=== PATIENT | male | born 1940 | race Caucasian/White ===

== ENCOUNTER → 2018-03-05 | Outpatient (CLI) | payer OTHER, BC ==
[~2018-03-05] MED LIST: ASPIR 8181 MG PO; ASPIRIN325 PO; COLACE100 MG PO; COZAAR 50 MG TA50 M2 PO; FISH OIL 1,001000 M2 PO; FLOMAX0.4 MG PO; LIVALO2 MG PO; LOPRESSOR25 PO; MIRALAX17 GM PO; MOBIC15 MG PO; NIACIN ER1000 MG PO; NORCO 5-325 TA1 EACH PO; PACERONE 200 M200 M1 PO; PROSTATE THERA1 EACH PO; RED YEAST RICE600 MG PO; TYLENOL325 MG PO; [UNRECOGNIZED DRUG - OTHER] PO
[2018-03-05 11:58] LABS: CREATININE 1.1 mg/dL (0.7-1.3)
== END ==
LOC: MRI 02-20 10:44
PROVIDERS: Psychiatry & Neurology Neurology
DX: M47.812 Spondylosis without myelopathy or radiculopathy, cervical region (principal); M31.9 Necrotizing vasculopathy, unspecified; M48.03 Spinal stenosis, cervicothoracic region; M43.13 Spondylolisthesis, cervicothoracic region; M50.23 Other cervical disc displacement, cervicothoracic region; G72.9 Myopathy, unspecified; I99.9 Unspecified disorder of circulatory system; R41.3 Other amnesia; R60.0 Localized edema; Z95.1 Presence of aortocoronary bypass graft

== ENCOUNTER → 2019-06-13 | Outpatient (CLI) | payer OTHER, BC | LOC: SJCVCIMAG 05-27 10:23 | DX: I25.10 Atherosclerotic heart disease of native coronary artery without angina pectoris (principal); E78.2 Mixed hyperlipidemia; I10 Essential (primary) hypertension; M19.90 Unspecified osteoarthritis, unspecified site; Z95.1 Presence of aortocoronary bypass graft; Z79.899 Other long term (current) drug therapy; Z87.891 Personal history of nicotine dependence ==

== ENCOUNTER → 2019-12-23 | Outpatient (CLI) | payer OTHER, BC | LOC: SJCVC 12:37 | PROVIDERS: ATTEND Internal Medicine Cardiovascular Disease | DX: I25.10 Atherosclerotic heart disease of native coronary artery without angina pectoris (principal); I10 Essential (primary) hypertension; E78.2 Mixed hyperlipidemia; E78.00 Pure hypercholesterolemia, unspecified; K21.9 Gastro-esophageal reflux disease without esophagitis; Z90.49 Acquired absence of other specified parts of digestive tract ==

== ENCOUNTER → 2020-05-03 | Outpatient (CLI) | payer OTHER, BC | LOC: SJCVC 11:18 | PROVIDERS: ATTEND Internal Medicine Cardiovascular Disease | DX: I25.10 Atherosclerotic heart disease of native coronary artery without angina pectoris (principal); R94.31 Abnormal electrocardiogram [ECG] [EKG]; I10 Essential (primary) hypertension; K21.9 Gastro-esophageal reflux disease without esophagitis; E78.5 Hyperlipidemia, unspecified; Z95.1 Presence of aortocoronary bypass graft; Z79.82 Long term (current) use of aspirin; Z79.899 Other long term (current) drug therapy; Z87.891 Personal history of nicotine dependence ==

== ENCOUNTER → 2020-07-20 | Outpatient (CLI) | payer OTHER, BC | LOC: SJCVC 10:14 | PROVIDERS: ATTEND Internal Medicine Cardiovascular Disease | DX: R94.31 Abnormal electrocardiogram [ECG] [EKG] (principal); I10 Essential (primary) hypertension; I25.10 Atherosclerotic heart disease of native coronary artery without angina pectoris; K21.9 Gastro-esophageal reflux disease without esophagitis; E78.5 Hyperlipidemia, unspecified; E78.00 Pure hypercholesterolemia, unspecified; Z79.82 Long term (current) use of aspirin; Z79.899 Other long term (current) drug therapy; Z87.891 Personal history of nicotine dependence; Z72.89 Other problems related to lifestyle; Z95.1 Presence of aortocoronary bypass graft ==

== ENCOUNTER → 2021-01-21 | Outpatient (CLI) | payer OTHER, BC | LOC: SJCVC 14:02 | PROVIDERS: ATTEND Internal Medicine Cardiovascular Disease | DX: R94.31 Abnormal electrocardiogram [ECG] [EKG] (principal); I25.10 Atherosclerotic heart disease of native coronary artery without angina pectoris; I10 Essential (primary) hypertension; K21.9 Gastro-esophageal reflux disease without esophagitis; E78.2 Mixed hyperlipidemia; I73.9 Peripheral vascular disease, unspecified; I77.9 Disorder of arteries and arterioles, unspecified; Z79.82 Long term (current) use of aspirin; Z79.899 Other long term (current) drug therapy; Z87.891 Personal history of nicotine dependence; Z72.89 Other problems related to lifestyle ==

== ENCOUNTER → 2021-03-25 | Outpatient (CLI) | payer OTHER, BC | LOC: SJCVCIMAG 03-07 14:26 | PROVIDERS: ATTEND Nuclear Medicine Nuclear Cardiology | DX: I65.23 Occlusion and stenosis of bilateral carotid arteries (principal); I70.203 Unspecified atherosclerosis of native arteries of extremities, bilateral legs; I77.9 Disorder of arteries and arterioles, unspecified ==

== ENCOUNTER → 2021-03-30 | Outpatient (CLI) | payer OTHER, BC | LOC: SJCVC 13:04 | PROVIDERS: ATTEND Nuclear Medicine Nuclear Cardiology | DX: I73.9 Peripheral vascular disease, unspecified (principal); I77.9 Disorder of arteries and arterioles, unspecified; I25.10 Atherosclerotic heart disease of native coronary artery without angina pectoris; I10 Essential (primary) hypertension; E78.00 Pure hypercholesterolemia, unspecified; E78.5 Hyperlipidemia, unspecified; Z95.1 Presence of aortocoronary bypass graft; Z79.82 Long term (current) use of aspirin; Z79.899 Other long term (current) drug therapy; Z88.8 Allergy status to other drugs, medicaments and biological substances; Z72.89 Other problems related to lifestyle; Z87.891 Personal history of nicotine dependence ==

== ENCOUNTER → 2021-05-12 | Outpatient (CLI) | payer OTHER, BC ==
[~2021-05-12] VITALS: Ht 177.8 cm; Wt 88.5 kg
[~2021-05-12] MED LIST changes: +NORVASC5 MG PO; +OMEPRAZOLE40 MG PO; +PLAVIX 75 MG TA75 M1 PO; +PLAVIX 75 MG TA75 MG PO; +REPATHA SY140 MG/1 M INJECTION
[2021-05-12 08:21] LABS: HEMATOCRIT 45.8 % (42.0-52.0); HEMOGLOBIN 15.4 gm/dL (14.0-18.0); MCH 32.6 pg (26.0-34.0); MCHC 33.6 g/dL (28.0-37.0); MCV 96.9 fL (80.0-100.0); RBC 4.73 mil/uL (4.50-6.00); RDW 12.9 % (10.5-14.5)
[2021-05-12 08:31] LABS: CALCIUM 8.9 mg/dL (8.5-10.1); CREATININE 1.1 mg/dL (0.7-1.3); POTASSIUM 4.1 mmol/L (3.5-5.1)
[2021-05-12 08:37] VITALS: BP 148/70
[2021-05-12 13:41] VITALS: BP 122/74
[2021-05-12 13:42] VITALS: BP 124/67
[2021-05-12 14:04] VITALS: BP 114/55
--- NOTE | 2021-05-12 16:37 | NUR ---
PT WAS UP AND AMB TO GET READY FOR DISCHARGE. AFTER HE WALKED BACK FROM THE BR HE FELT NAUSEATED, DIZZY, HAD PAIN ACROSS HIS LOWER ABD, AND HIS LEGS WERE SHAKING. BP RUNS LOW AND HIS MANUAL BP WAS 92/60 HR 80'S AND IN NSR. ENCOURAGED PT TO LAY DOWN AND REST LONGER TO SEE IF THIS HELPS. SYMPTOMS CONTINUED.
--- NOTE | 2021-05-12 16:46 | NUR ---
PT NOTED TO HAVE LOWER EXT TREMORS THAT PT STATES HE CANNOT CONTROL. PT DENIES CP, SOA, ABD PAIN OR FLANK PAIN. PT SKIN WPD. DR. FULTON IN LAB AND VERBAL REPORT TO HIM GIVEN. BLOOD SUGAR TO BE CHECKED AND DR. FULTON AT BEDSIDE 16:45HRS. NO FURTHER ORDERS RECEIVED.
--- NOTE | 2021-05-12 16:49 | NUR ---
DR FULTON CALLED TO THE BS AND DISCUSSED SITUATION WITH THE PT. BLOOD SUGAR WAS CHECKED AT 91.
--- NOTE | 2021-05-12 16:59 | NUR ---
PT WAS GIVEN OJ AND CRACKERS WITH WARM BLANKETS. DR FULTON AWARE OF PROGRESS AND WANTS PT TO BE AMB AND LEAVE WHEN STABLE.
--- NOTE | 2021-05-12 18:08 | NUR ---
PT UP TO AMB TO THE BR AND FELT BETTER AFTERWARD. PT ABLE TO AMB TO HIS ROOM AND STATED HIS SYMPTOMS WERE BETTER. PT DC'D HOME WITH FRIEND AT 3050
== END | disposition home or self-care (01) ==
LOC: CATH 07:23
PROVIDERS: ATTEND Nuclear Medicine Nuclear Cardiology
DX: I70.211 Atherosclerosis of native arteries of extremities with intermittent claudication, right leg (principal); M79.604 Pain in right leg; I70.1 Atherosclerosis of renal artery; I10 Essential (primary) hypertension; I25.10 Atherosclerotic heart disease of native coronary artery without angina pectoris; E78.5 Hyperlipidemia, unspecified; N40.0 Benign prostatic hyperplasia without lower urinary tract symptoms; M19.90 Unspecified osteoarthritis, unspecified site; Z98.890 Other specified postprocedural states; Z79.899 Other long term (current) drug therapy; Z87.442 Personal history of urinary calculi; Z95.1 Presence of aortocoronary bypass graft; Z90.49 Acquired absence of other specified parts of digestive tract; Z87.891 Personal history of nicotine dependence

== ENCOUNTER → 2021-05-16 | Outpatient (CLI) | payer OTHER, BC ==
[~2021-05-16] VITALS: Ht 172.7 cm; Wt 88.5 kg
[2021-05-16 08:09] VITALS: BP 124/65
== END | disposition home or self-care (01) ==
LOC: CATH 07:34
PROVIDERS: ATTEND Nuclear Medicine Nuclear Cardiology
DX: I70.213 Atherosclerosis of native arteries of extremities with intermittent claudication, bilateral legs (principal); M79.604 Pain in right leg; M79.605 Pain in left leg; I10 Essential (primary) hypertension; I25.10 Atherosclerotic heart disease of native coronary artery without angina pectoris; E78.5 Hyperlipidemia, unspecified; M19.90 Unspecified osteoarthritis, unspecified site; N40.0 Benign prostatic hyperplasia without lower urinary tract symptoms; Z98.890 Other specified postprocedural states; Z79.899 Other long term (current) drug therapy; Z95.1 Presence of aortocoronary bypass graft; Z82.49 Family history of ischemic heart disease and other diseases of the circulatory system; Z87.442 Personal history of urinary calculi; Z90.49 Acquired absence of other specified parts of digestive tract; Z87.891 Personal history of nicotine dependence